=== PATIENT | male | born 1960 | race Caucasian/White ===

== ENCOUNTER 2017-04-22 11:11 | Inpatient (IN) | payer OTHER ==
[~2017-04-22] VITALS: Ht 177.8 cm; Wt 171.5 kg
--- NOTE | ~2017-04-22 | H ---
[facility] [place] [address] HISTORY AND PHYSICAL Name: KOKI ESTRADA Room #: 205-P [facility] IN M.R.#: [id number] Admission: 04/22/17 Attend Phys: Aaron Mark Discharge: 04/23/17 Date of : 64 Report #: [id number] THIS REPORT FOR: //name// CC: Aaron Delgado HISTORY OF PRESENT ILLNESS: This very pleasant gentleman is admitted for initiation of antiarrhythmic medication and possible cardioversion. The patient has been followed and anticoagulated per protocol prior to admission and had been seen in the office recently. He continues to have atrial fibrillation, although symptoms are improved with rate control. He has been anticoagulated adequately. He now presents for initiation of antiarrhythmic medicines. Otherwise, history and physical is unchanged from the office note. PHYSICAL EXAMINATION: GENERAL: Well-developed, well-nourished male, resting comfortably in no distress. VITAL SIGNS: Noted and reviewed in the chart. HEENT: Normocephalic, atraumatic. Pupils are equal, round, reactive to light and accommodation. Extraocular muscles are intact. Sclerae and conjunctivae are anicteric. NECK: JVD is normal. Carotid upstrokes are bilaterally symmetrical. No bruits are heard. No thyromegaly. No lymphadenopathy. LUNGS: Clear to auscultation. No wheezes, rhonchi or crackles. No CVA tenderness. CARDIAC: Demonstrates an irregularly irregular rhythm, controlled ventricular response with a variable first heart sound. ABDOMEN: Soft, nontender, nondistended. Normal bowel sounds. EXTREMITIES: Without cyanosis, clubbing or edema. Distal pulses are intact. DTR symmetrical. NEUROLOGIC: Cranial nerves 2-12 are grossly normal and symmetrical. PSYCHIATRIC: Alert, oriented with normal affect. SKIN: Warm and dry. IMPRESSION: Symptomatic paroxysmal atrial fibrillation, presents for initiation of antiarrhythmic medicine and possible cardioversion. The risks, complications and alternatives to above had been discussed with the patient. He does voice understanding and wished to proceed. <ELECTRONICALLY SIGNED> By: Aaron Mark MD 08/18/17 1632 1746 1810 Aaron Mark MD /nt
--- NOTE | ~2017-04-22 | CATHLAB ---
[facility] [place] [address] INVASIVE PROCEDURE REPORT Name: KOKI ESTRADA Room #: 205-P [facility] IN ..#: [id number] Admission: 04/22/17 Attend Phys: Aaron Reyez Discharge: 04/23/17 Date of : 64 Date of Service: 05/28/17 1303 Report #: [id number] THIS REPORT FOR: //name// CC: Aaron Delgado DATE OF SERVICE: 04/23/2017 DATE OF PROCEDURE: 04/23/2017 INDICATIONS: This is a 57-year-old male patient with symptomatic paroxysmal atrial fibrillation. PROCEDURES: 1. Electrical cardioversion. 2. Supervision of conscious sedation. CONSCIOUS SEDATION: A. Versed 6 mg. B. Demerol 50 mg IV push. FEATURE WRITER: Aaron Mark MD BRIEF DESCRIPTION OF PROCEDURE: After informed consent was obtained, the patient was brought to the cardiovascular laboratory, prep and hold. Sedation was performed as stated above during continuous electrocardiographic and oximetric monitoring. One synchronized shock of 200 joules biphasic mode in an AP paddle position was performed. The patient converted to sinus mechanism with PACs noted. He subsequently was reversed with 0.4 Romazicon and 0.4 of Narcan. No complications noted. <ELECTRONICALLY SIGNED> By: Aaron Mark MD 05/31/17 0942 1303 1845 Aaron Mark MD /radha
--- NOTE | ~2017-04-22 | EKG ---
[address] [address] ELECTROCARDIOGRAM REPORT Name: KOKI ESTRADA Room #: 205-P [facility] IN M.R.#: [id number] Admission: 04/22/17 Attend Phys: Aaron Mark Discharge: 04/23/17 Date of : 64 Report #: [id number] THIS REPORT FOR: //name// [facility] Test Date: 2017-04-23 Test Time: 11:42:25 Pat Name: KOKI ESTRADA Department: Room: 205 P Gender: M Social Science Professor: Jackie VICTORIA : 1960 Requested By: Aaron Mark Order Number: [id number] MD: Avery Esparza Measurements Intervals [place] Rate: 72 P: 49 IN: 198 QRS: -14 QRSD: 101 T: 20 QT: 417 QTc: 457 Interpretive Statements Sinus rhythm Low voltage, precordial leads Poor R wave progression Nonspecific T wave abnormality Compared to ECG 11/14/2004 17:33:12 T-wave abnormality now present Electronically Signed On 04-23-2017 16:22:58 [employer] by Avery Esparza [email or web address] <ELECTRONICALLY SIGNED> By: Avery Esparza MD, FACC 04/23/17 1622 1142 1142 Avery Esparza MD, [facility] /EPI
--- NOTE | ~2017-04-22 | D ---
[facility] [place] [address] DISCHARGE SUMMARY Name: KOKI ESTRADA Room #: 205-P [facility] IN M.R.#: [id number] Admission: 04/22/17 Attend Phys: Aaron Mark Discharge: 04/23/17 Date of : 64 Report #: [id number] THIS REPORT FOR: //name// CC: Aaron Delgado DATE OF SERVICE: 04/23/2017 ADMITTING DIAGNOSES: 1. Paroxysmal symptomatic atrial fibrillation. 2. Hypertension. 3. Dyslipidemia. DISCHARGE DIAGNOSES: 1. Paroxysmal symptomatic atrial fibrillation. 2. Hypertension. 3. Dyslipidemia. PROCEDURES PERFORMED: Electrical cardioversion with conscious sedation supervision. FOLLOWUP: Dr. Mark in 4 weeks. DISCHARGE MEDICATIONS: Home meds with the following changes: Amiodarone p.o. 200 mg t.i.d. for 1 week, then b.i.d. for 1 week, then q.a.m. from then on. DISCHARGE DIET: [place] step 1 diet. BRIEF CLINICAL HISTORY: See history and physical in the chart. HOSPITAL COURSE: The patient was admitted to the hospital and underwent IV amiodarone load. This failed to convert the patient and on the subsequent day, he was brought to the cardiac catheterization laboratory where uncomplicated electrical cardioversion was performed with conversion to sinus mechanism. Subsequent to the procedure, he was allowed to ambulate, discharged to home in stable condition and discharged in improved condition to follow up with the previously stated discharge instructions and medications. <ELECTRONICALLY SIGNED> By: Aaron Mark MD 05/31/17 0942 1306 1414 Aaron Mark MD /nt
[2017-04-22 13:58] VITALS: BP 144/95
[2017-04-22] MEDS ORDERED: LOPRESSOR50 PO (14:51)
[2017-04-22] MEDS ORDERED: ELIQUIS5 MG PO (14:52)
[2017-04-22] MEDS ORDERED: ZOCOR20 MG PO (14:52)
[2017-04-22] MEDS ORDERED: AMLODIPINE BESY10 MG PO (14:53)
[2017-04-22] MEDS ORDERED: ZESTORETIC 20-1 EAC3 PO (14:54)
[2017-04-22 15:59] VITALS: BP 121/89
[2017-04-22 20:09] VITALS: BP 151/85
[2017-04-23 08:00] VITALS: BP 151/106
[2017-04-23 14:32] VITALS: BP 151/106
== END 2017-04-23 16:16 | disposition home or self-care (01) | DRG 310 ==
LOC: TBA 11:11 → 2N 12:50 → ENTRNSPT 04-23 15:24 → EDTRNSPTSTS 04-23 15:27 → 2N 04-23 16:16
PROC: 5A2204Z Restoration of Cardiac Rhythm, Single (ICD-10-PCS; principal; 2017-04-23)
DX: I48.0 Paroxysmal atrial fibrillation (principal); Z79.899 Other long term (current) drug therapy
CPT/HCPCS: 10081